=== PATIENT | female | born 1960 | race Caucasian/White ===

== ENCOUNTER → 2017-02-03 | Outpatient (CLI) | payer OTHER ==
[~2017-02-03] MED LIST: ASPIRIN325 M2 PO; BUSPIRONE10 MG PO; CATAPRES-TTS 10.1 MG PO; LIPITOR80 MG PO; LOSARTAN POTASS25 M1 PO; METOPROLOL SUCC50 M2 PO; NORVASC10 MG PO; NORVASC5 MG PO; STRATTERA80 MG PO; VENTOLIN H0.09 MG/AC INH; XANAX0.5 MG PO; ZANAFLEX4 M1 PO
== END | disposition home or self-care (01) ==
LOC: CARD 03:47
DX: R07.9 Chest pain, unspecified (principal)

== ENCOUNTER → 2017-04-06 | Outpatient (CLI) | payer OTHER | END | disposition home or self-care (01) | LOC: US 12:52 | DX: I65.23 Occlusion and stenosis of bilateral carotid arteries (principal); I10 Essential (primary) hypertension; R42 Dizziness and giddiness; F17.200 Nicotine dependence, unspecified, uncomplicated; Z86.73 Personal history of transient ischemic attack (TIA), and cerebral infarction without residual deficits ==

== ENCOUNTER → 2017-04-18 | Outpatient (CLI) | payer OTHER | END | disposition home or self-care (01) | LOC: MRI 04-06 14:00 | DX: I69.393 Ataxia following cerebral infarction (principal); I67.82 Cerebral ischemia; I10 Essential (primary) hypertension ==